=== PATIENT | female | born 1935 | race Caucasian/White ===

== ENCOUNTER 2018-06-04 18:25 | Observation (INO) ==
[2018-06-04 19:48] LABS: Baso % (Auto) 0.4 % (0.0-2.0); Eos # (Auto) 0.1 th/mm3 (0.0-0.4); Eos % (Auto) 1.5 % (0.0-4.0); Hematocrit 37.6 % (35.0-46.0); Hemoglobin 12.2 gm/dL (11.6-15.3); Lymph # (Auto) 1.9 th/mm3 (1.0-4.8); Lymph % (Auto) 42.5 % (9.0-44.0); Mean Corpuscular HGB Conc 32.3 % (32.0-36.0); Mean Corpuscular Hemoglobin 29.1 pg (27.0-34.0); Mean Corpuscular Volume 90.1 fL (80.0-100.0); Mean Platelet Volume 9.9 fL (7.0-11.0); Mono # (Auto) 0.4 th/mm3 (0.0-0.9); Mono % (Auto) 9.9 % (0.0-8.0); Neut # (Auto) 2.1 th/mm3 (1.8-7.7); Neut % (Auto) 45.7 % (16.0-70.0); Platelet Count 152 th/mm3 (150-450); Red Blood Count 4.18 mil/mm3 (4.00-5.30); White Blood Count 4.5 th/mm3 (4.0-11.0)
[2018-06-04 20:16] LABS: Alanine Aminotransferase 16 U/L (10-53); Albumin 2.7 g/dL (3.4-5.0); Alkaline Phosphatase 76 U/L (45-117); Anion Gap 6 meq/L (5-15); Aspartate Aminotransferase 33 U/L (15-37); Blood Urea Nitrogen 23 mg/dL (7-18); Calcium 7.8 mg/dL (8.5-10.1); Carbon Dioxide 30.1 meq/L (21.0-32.0); Chloride 106 meq/L (98-107); Glomerular Filtration Rate Greater Than 89 mL/min (>89); Glucose,Random 77 mg/dL (74-106); Sodium 142 meq/L (136-145); Total Protein 6.3 g/dL (6.4-8.2); Troponin I 0.03 ng/mL (0.02-0.05)
[2018-06-04 20:18] LABS: Potassium 2.9 meq/L (3.5-5.1)
[2018-06-04] MEDS ORDERED: HYDROmorphone PF Inj 2 MG/ML Vial IV.PUSH ONE (21:39)
--- NOTE | 2018-06-04 22:04 | ED ---
HPI General Chief complaint: Medical Clearance Stated complaint: DR sent for cardiac check Time Seen by Provider: 06/04/18 19:09 Source: patient and family Mode of arrival: ambulatory Limitations: altered mental status History of Present Illness HPI Narrative: The patient is 82 years old and arrives to the ED due to bradycardia with arrhythmia at a primary care facility. The patient has not been eating for the past couple weeks. The son was worried and so brought her to the primary care for evaluation thinking it might of been a UTI. Dipstick was done there. No UTI was present. Incidentally the son notes diet has improved over the past couple of days. He also notes DCF came by a few days prior due to concern from the neighbors. The patient has no complaint in the ED. MD complaint: medical clearance requested Onset (ago): hour(s) Reason for Medical Clearance: medical condition Place: home Alleged Intoxication: No Compliant with Home Medications: No Traumatic Symptoms: denies traumatic injury Associated Symptoms: other (decreased appetite) Home Medications Medication Instructions Recorded Confirmed No Known Home Medications 06/04/18 06/04/18 Allergies Allergy/AdvReac Type Severity Reaction Status Date / Time No Known Allergies Allergy Verified 06/04/18 19:11 Review of Systems ROS: all other systems reviewed are negative Constitutional Denies fever(s) and Reports increased appetite PMFSH Social History Social History Substance History: No History of Abuse Smoking Status: Never smoker How Often Do You Have a Drink Containing Alcohol: Never Recent Travel in [facility] within the Last 8 Weeks: No Recent Out of Country Travel within the Last 8 Weeks: No Immunization History Tetanus Immunization: Unsure Hx Influenza Vaccine This Season: No Exam Narrative Exam Narrative: GENERAL: 82-year-old female, very thin with a BMI 15, resting comfortably, answers yes and no to some questions SKIN: Focused skin assessment warm/dry. HEAD: Atraumatic. Normocephalic. EYES: Pupils equal and round. No scleral icterus. No injection or drainage. ENT: No nasal bleeding or discharge. Mucous membranes pink and moist. NECK: Trachea midline. No JVD. CARDIOVASCULAR: Rate is about 50-60. RESPIRATORY: No accessory muscle use. Clear to auscultation. Breath sounds equal bilaterally. GASTROINTESTINAL: Abdomen soft, non-tender, nondistended. Hepatic and splenic margins not palpable. MUSCULOSKELETAL: No obvious deformities. No clubbing. No cyanosis. No edema. NEUROLOGICAL: Awake and alert. No obvious cranial nerve deficits. Motor grossly within normal limits. Normal speech. PSYCHIATRIC: Appropriate mood and affect; insight and judgment normal. Course Initial Documented Vital Signs Temperature 97.8 F 06/04/18 18:42 Pulse Rate 55 L 06/04/18 18:42 Respiratory Rate 14 06/04/18 18:42 Blood Pressure 123/59 L 06/04/18 18:42 Pulse Oximetry 99 06/04/18 18:42 Last Documented Vital Signs Temperature 97.8 F 06/04/18 18:42 Pulse Rate 57 L 06/04/18 23:02 Respiratory Rate 17 06/04/18 23:02 Blood Pressure 138/69 06/04/18 23:02 Pulse Oximetry 100 06/04/18 23:02 Medical Decision Making MDM Narrative Medical decision making narrative: The patient is a 82-year-old female who arrives with her son. She was not eating any food for the past several days however couple days ago developed somewhat vigorous appetite and began eating more than normal. The son was worried she might have UTI or some other readily correctable abnormality and went to an urgent care center. A dipstick there showed no UTI however her heart rate was in the 50s and evidently regular however they did not capture any EKG or someone with them. The patient was referred to the ED for evaluation of the bradycardia with arrhythmia. Here the patient has no chest pain shortness of breath nausea vomiting or fever. The patient's son reports she has had a vigorous appetite lately as noted. No vomiting. On the monitor we see a heart rate of 50-60 which appears regular. The EKG shows a rhythm of 61 with frequent PVCs, unifocal. Initial blood work showed potassium of 2.9 with a BUN creatinine ratio of 23/0.46 concern for prerenal azotemia. TSH was also less than 0.05. A liter of saline was transfused and 40 mEq potassium administered. Repeat blood work was done. Repeat BMP revealed a BUN creatinine of 22/0.44 and potassium 3.1 with mild hypocalcemia. Troponin also at 0.03 is noted. Case discussed with the son and the patient about admission with IV hydration and electrolyte replenishment serial blood work. Case management may also be of some benefit in this case. Overall the son prefers to take the patient home. She does live alone however he visits daily and assists with laundry among other things. Case discussed with Dr. Dunbar for the hospitalist service. Medical Screen Exam Complete: Yes Emergency Medical Condition: Yes Differential Diagnosis Differential Diagnosis: Electrolyte imbalance, arrhythmia, dehydration, failure to thrive, hypothyroidism Lab Data Lab results reviewed: Yes I reviewed the patient's lab results. Lab results narrative: Troponin 0.03 LFTs are essentially unremarkable TSH is less than 0.05 Result diagrams: 06/04/18 19:35 06/04/18 22:20 Lab Results 06/04/18 06/04/18 06/04/18 Range/Units 19:35 19:35 22:20 WBC 4.5 (4.0-11.0) th/mm3 RBC 4.18 (4.00-5.30) mil/mm3 Hgb 12.2 (11.6-15.3) gm/dL Hct 37.6 (35.0-46.0) % MCV 90.1 (80.0-100.0) fL MCH 29.1 (27.0-34.0) pg MCHC 32.3 (32.0-36.0) % RDW 17.0 (11.6-17.2) % Plt Count 152 (150-450) th/mm3 MPV 9.9 (7.0-11.0) fL Neut % (Auto) 45.7 (16.0-70.0) % Lymph % (Auto) 42.5 (9.0-44.0) % [place] % (Auto) 9.9 H (0.0-8.0) % Eos % (Auto) 1.5 (0.0-4.0) % Baso % (Auto) 0.4 (0.0-2.0) % Neut # (Auto) 2.1 (1.8-7.7) th/mm3 Lymph # (Auto) 1.9 (1.0-4.8) th/mm3 [place] # (Auto) 0.4 (0.0-0.9) th/mm3 Eos # (Auto) 0.1 (0.0-0.4) th/mm3 Baso # (Auto) 0.0 (0.0-0.2) th/mm3 WBC Differential . Differential Comment Auto diff final Sodium 142 144 (136-145) meq/L Potassium 2.9 L* 3.1 L (3.5-5.1) meq/L Chloride 106 108 H (98-107) meq/L Carbon Dioxide 30.1 30.2 (21.0-32.0) meq/L Anion Gap 6 6 (5-15) meq/L BUN 23 H 22 H (7-18) mg/dL Creatinine 0.46 L 0.44 L (0.50-1.00) mg/dL Estimated GFR Greater than 89 Greater than 89 (>89) mL/min Random Glucose 77 82 (74-106) mg/dL Calcium 7.8 L 7.4 L* (8.5-10.1) mg/dL Prot Corrected Calcium 8.3 L (8.5-10.1) mg/dL Total Bilirubin 0.7 (0.2-1.0) mg/dL AST 33 (15-37) U/L ALT 16 (10-53) U/L Alkaline Phosphatase 76 (45-117) U/L Troponin I 0.03 (0.02-0.05) ng/mL Total Protein 6.3 L 5.5 L D (6.4-8.2) g/dL Albumin 2.7 L (3.4-5.0) g/dL TSH Less than 0.005 L (0.358-3.740) uIU/mL Free T4 1.08 (0.76-1.46) ng/dL Discharge Plan Discharge Disposition Patient Disposition: 30 Still Patient Physicians Team ED Provider: Geronimo Langley Primary Care Provider: UNKNOWN, Rxs /Orders / Referrals /Forms Prescriptions: No Action No Known Home Medications RF: 0 Discharge Interventions Interventions: Vital Signs Last Done: 06/04/18 23:02 Status ED Status: Ready for Discharge
[2018-06-04 22:55] LABS: Anion Gap 6 meq/L (5-15); Blood Urea Nitrogen 22 mg/dL (7-18); Calcium 7.4 mg/dL (8.5-10.1); Carbon Dioxide 30.2 meq/L (21.0-32.0); Chloride 108 meq/L (98-107); Free T4 (Free Thyroxine) 1.08 ng/dL (0.76-1.46); Glomerular Filtration Rate Greater Than 89 mL/min (>89); Glucose,Random 82 mg/dL (74-106); Potassium 3.1 meq/L (3.5-5.1); Sodium 144 meq/L (136-145)
[2018-06-04 23:11] LABS: Total Protein 5.5 g/dL (6.4-8.2)
[2018-06-04] MEDS ORDERED: Bisacodyl 10 MG Supp RECTAL PRN (23:45)
[2018-06-04] MEDS ORDERED: Acetaminophen 325 MG Tablet PO PRN (23:45)
--- NOTE | 2018-06-04 23:57 | P.HPIM ---
History of Present Illness Primary Care Physician: UNKNOWN History of Present Illness: This is an 79-year-old female with no significant PMH was referred to the ER by her PCP for bradycardia and abnormal EKG. Per son, patient had had decreased appetite w/ c/o generalized weakness for the last 1-2wks. Was seen by PCP, found to be negative for UTI, however she was noted to have HR 50's and possible abnormal rhythm on EKG. On arrival, BP 123/59, HR 55, O2 sat 99% on RA , Afebrile. CBC unremarkable. K+ 2.9. Troponin 0 0.03. UA negative for UTI. S/p K+ replacement in ER, repeat K+ 3.1. - Diagnosis (1) Hypokalemia (2) Bradycardia (3) Dehydration Review of Systems PAST FAMILY HISTORY: Reviewed. No h/o DM or CAD All other systems reviewed negative except as stated in HPI PMFSH - History History Provided By: Family Member - Tobacco History Smoking Status: Never smoker - Alcohol History How Often Do You Have a Drink Containing Alcohol: Never - Substance Use History Substance History: No History of Abuse - Travel History Recent Travel in the [place] Within the Last 8 Weeks: No Recent Travel Out of the Country Within the Last 8 Weeks: No - Immunization History Tetanus Immunization: Unsure Hx Influenza Vaccine This Season: No Medications and Allergies Active Medications: Active Medications Acetaminophen (Tylenol) 650 mg PO Q4H PRN PRN Reason: Temp > 100.4 Al Hydroxide/Mg Hydroxide (Milk Of Magnesia Liq) 30 ml PO Q12H PRN PRN Reason: Mild Constipation Bisacodyl (Dulcolax Supp) 10 mg RECTAL DAILY PRN PRN Reason: SEVERE CONSITIPATION Sodium Chloride (Ns Inj) 1,000 mls @ 100 mls/hr IV.CONT .Q10H VERONICA Lactulose (Lactulose Liq) 30 ml PO DAILY PRN PRN Reason: SEVERE CONSITIPATION Ondansetron HCl (Zofran Inj) 4 mg IV.PUSH Q6H PRN PRN Reason: NAUSEA OR VOMITING Senna/Docusate Sodium (Adriana-Colace) 1 tab PO BID VERONICA Sennosides (Senokot) 17.2 mg PO Q12H PRN PRN Reason: Moderate Constipation Sodium Chloride (Ns Flush) 2 ml IV.FLUSH PRN PRN PRN Reason: FLUSH AFTER USING IV ACCESS Allergies Allergy/AdvReac Type Severity Reaction Status Date / Time No Known Allergies Allergy Verified 06/04/18 19:11 Home Medications Medication Instructions Recorded Confirmed Type No Known Home Medications 06/04/18 06/04/18 History Exam Vital signs: Vital Signs 06/04/18 18:42 06/04/18 19:18 06/04/18 19:34 Temperature 97.8 F Pulse Rate 55 L 59 L 61 Respiratory Rate 14 18 Blood Pressure 123/59 L 136/63 Pulse Oximetry 99 99 06/04/18 19:35 06/04/18 23:02 Temperature Pulse Rate 57 L Respiratory Rate 17 Blood Pressure 138/69 Pulse Oximetry 99 100 Intake & Output 06/04/18 06/04/18 06/05/18 06:59 18:59 06:59 Weight 30.844 kg Narrative: PE: GENERAL: Thin elderly female in no acute distress. SKIN: Focused skin assessment warm and dry. HEENT: PERRLA, EOMI. No scleral icterus or conjunctival pallor. No lid lag or facial droop. CARDIOVASCULAR: Regular rate and rhythm. No obvious murmurs to auscultation. No chest tenderness to palpation. RESPIRATORY: No obvious rhonchi or wheezing. Clear to auscultation. Breath sounds equal bilaterally. GASTROINTESTINAL: Abdomen soft, non-tender, nondistended. BS normal. MUSCULOSKELETAL: Extremities without clubbing, cyanosis, or edema. No obvious deformities. NEUROLOGICAL: Awake, alert, answers to few questions. No focal neurologic deficits. Moving both upper and lower extremities spontaneously. PSYCHIATRIC: Appropriate mood and affect. Insight and judgment normal. Results - Labs CBC & Chem 7: 06/04/18 19:35 06/04/18 22:20 Labs: Short CBC 06/04/18 Range/Units 19:35 WBC 4.5 (4.0-11.0) th/mm3 Hgb 12.2 (11.6-15.3) gm/dL Hct 37.6 (35.0-46.0) % Plt Count 152 (150-450) th/mm3 [facility] 06/04/18 06/04/18 19:35 22:20 Sodium 142 144 Potassium 2.9 L* 3.1 L Chloride 106 108 H Carbon Dioxide 30.1 30.2 BUN 23 H 22 H Creatinine 0.46 L 0.44 L Calcium 7.8 L 7.4 L* Cardiac Enzymes 06/04/18 Range/Units 19:35 Troponin I 0.03 (0.02-0.05) ng/mL Liver Function 06/04/18 Range/Units 19:35 Total Bilirubin 0.7 (0.2-1.0) mg/dL AST 33 (15-37) U/L ALT 16 (10-53) U/L Alkaline Phosphatase 76 (45-117) U/L Albumin 2.7 L (3.4-5.0) g/dL Caprini VTE Risk Assessment Caprini VTE Risk Assessment: No/Low Risk (score <= 1) Caprini Risk Assessment Model: Point Value = 1 Point Value = 2 Point Value = 3 Point Value = 5 Age 41-60 Minor surgery BMI > 25 kg/m2 Swollen legs Varicose veins or History of unexplained or recurrent spontaneous Oral contraceptives or hormone replacement Sepsis (< 1 month) Serious lung disease, including pneumonia (< 1 month) Abnormal pulmonary function Acute myocardial infarction Congestive heart failure (< 1 month) History of inflammatory bowel disease Medical patient at bed rest Age 61-74 Arthroscopic surgery Major open surgery (> 45 min) Laparoscopic surgery (> 45 min) Malignancy Confined to bed (> 72 hours) Immobilizing plaster cast Central venous access Age >= 75 History of VTE Family history of VTE Factor V Leiden Prothrombin [id number] Lupus anticoagulant Anticardiolipin antibodies Elevated serum homocysteine Heparin-induced thrombocytopenia Other congenital or acquired thrombophilia Stroke (< 1 month) Elective arthroplasty Hip, pelvis, or leg fracture Acute spinal cord injury (< 1 month) Prophylaxis Regimen: Total Risk Factor Score Risk Level Prophylaxis Regimen 0-1 Low Early ambulation 2 Moderate Order ONE of the following: *Sequential Compression Device (SCD) *Heparin 5000 units SQ BID 3-4 Higher Order ONE of the following medications: *Heparin 5000 units SQ TID *Enoxaparin/Lovenox 40 mg SQ daily (WT < 150 kg, CrCl > 30 mL/min) *Enoxaparin/Lovenox 30 mg SQ daily (WT < 150 kg, CrCl > 10-29 mL/min) *Enoxaparin/Lovenox 30 mg SQ BID (WT < 150 kg, CrCl > 30 mL/min) AND/OR *Sequential Compression Device (SCD) 5 or more Highest Order ONE of the following medications: *Heparin 5000 units SQ TID (Preferred with Epidurals) *Enoxaparin/Lovenox 40 mg SQ daily (WT < 150 kg, CrCl > 30 mL/min) *Enoxaparin/Lovenox 30 mg SQ daily (WT < 150 kg, CrCl > 10-29 mL/min) *Enoxaparin/Lovenox 30 mg SQ BID (WT < 150 kg, CrCl > 30 mL/min) AND *Sequential Compression Device (SCD) Assessment and Plan - Assessment (1) Hypokalemia Code(s): E87.6 - Hypokalemia Status: Acute (2) Bradycardia Code(s): R00.1 - Bradycardia, unspecified Status: Acute (3) Dehydration Code(s): E86.0 - Dehydration Status: Acute - Plan A/P: 1. Hypokalemia: K+ 2.9 on exam, s/p IVF and K+ replacement, repeat K+ 3.1, will give additional replacement. Check Mg. EKG w/ frequent PVC's likely due to electrolyte imbalance. Telemetry, monitor closely. 2. Bradycardia: HR 50-60's while in ER, relays generalized weakness, unclear if related to symptomatic bradycardia or due to decreased PO intake, telemetry. Check Echo to eval for cardiomyopathy. Cardio eval as needed. 3. Dehydration: BUN 23, IVF for hydration, monitor I/O, repeat labs in am. 4. DVT Prophylaxis: SCD/Teds 5. Social work for d/c planning as needed 6. Case discussed w/ ER physician at length, labs/records/imaging reviewed by me
[2018-06-05 00:34] LABS: Bacteria,Urine Few /hpf; Bilirubin,Urine Negative (Negative); Clarity,Urine Hazy (Clear); Color,Urine Yellow (Yellw/Straw); Glucose,Urine (UA) Negative (Negative); Leukocyte Esterase,Urine Negative (Negative); Nitrite,Urine Negative (Negative); Specific Gravity,Urine 1.011 (1.002-1.035); Squamous Epithelial Cell,Urine 1 /hpf (0-5); Transitional Epi Cells,Urine <1 /hpf
[2018-06-05 00:54] LABS: Magnesium 1.6 mg/dL (1.5-2.5)
[2018-06-05 00:56] LABS: Troponin I 0.04 ng/mL (0.02-0.05)
[2018-06-05] MEDS: Sod Chloride 0.9% Inj 1,000 ML IV.CONT SCH ×3 (01:33→20:21)
--- NOTE | 2018-06-05 07:54 | P.PN ---
Subjective Interval history: Patient doing well overnight. Per nephew in room, patient now at baseline and denies weakness. Patient reports that she is able to complete all ADL's at home , and that she feels ready for discharge. Patient denies any syncopal episodes overnight, no other concerns. Patient is F/V/S well. Physical Exam Vital signs: Vital Signs 06/04/18 18:42 06/04/18 19:18 06/04/18 19:34 Temperature 97.8 F Pulse Rate 55 L 59 L 61 Respiratory Rate 14 18 Blood Pressure 123/59 L 136/63 Pulse Oximetry 99 99 06/04/18 19:35 06/04/18 23:02 06/05/18 00:00 Temperature Pulse Rate 57 L 54 L Respiratory Rate 17 18 Blood Pressure 138/69 132/58 L Pulse Oximetry 99 100 100 06/05/18 00:05 06/05/18 04:00 Temperature 98.3 F Pulse Rate 66 57 L Respiratory Rate 16 Blood Pressure 145/65 H Pulse Oximetry 100 Intake & Output 06/04/18 06/05/18 06/05/18 18:59 06:59 18:59 Weight 30.844 kg Narrative: GENERAL: thin, female, lying comfortably in bed, in NAD, AAOx3 SKIN: Warm and dry. HEENT: Normocephalic. No scleral icterus. No injection or drainage. Poor dentition, MOM. NECK: Supple, trachea midline. No JVD or lymphadenopathy. CARDIOVASCULAR: Regular rate and rhythm without murmurs, gallops, or rubs. RESPIRATORY: Breath sounds equal bilaterally. No accessory muscle use. GASTROINTESTINAL: Abdomen soft, non-tender, nondistended. MUSCULOSKELETAL: No cyanosis, or edema. BACK: Nontender without obvious deformity. No CVA tenderness. Results - Labs CBC & Chem 7: 06/05/18 07:40 06/05/18 07:40 Laboratory Results - last 24 hr 06/04/18 06/04/18 06/04/18 19:35 19:35 22:20 WBC 4.5 RBC 4.18 Hgb 12.2 Hct 37.6 MCV 90.1 MCH 29.1 MCHC 32.3 RDW 17.0 Plt Count 152 MPV 9.9 Neut % (Auto) 45.7 Lymph % (Auto) 42.5 [place] % (Auto) 9.9 H Eos % (Auto) 1.5 Baso % (Auto) 0.4 Neut # (Auto) 2.1 Lymph # (Auto) 1.9 [place] # (Auto) 0.4 Eos # (Auto) 0.1 Baso # (Auto) 0.0 WBC Differential . Differential Comment Auto diff final Sodium 142 144 Potassium 2.9 L* 3.1 L Chloride 106 108 H Carbon Dioxide 30.1 30.2 Anion Gap 6 6 BUN 23 H 22 H Creatinine 0.46 L 0.44 L Estimated GFR Greater than 89 Greater than 89 Random Glucose 77 82 Calcium 7.8 L 7.4 L* Prot Corrected Calcium 8.3 L Magnesium Total Bilirubin 0.7 AST 33 ALT 16 Alkaline Phosphatase 76 Troponin I 0.03 Total Protein 6.3 L 5.5 L D Albumin 2.7 L TSH Less than 0.005 L Free T4 1.08 Urine Color Urine Clarity Urine pH Ur Specific [place] Urine Protein Urine Glucose (UA) Urine Ketones Urine Occult Blood Urine Nitrate Urine Bilirubin Urine Urobilinogen Ur Leukocyte Esterase Urine RBC Urine WBC Ur Squamous Epith Cells Ur Transition Epith Cell Urine Bacteria Micro UA Comment Ur Microscopic Review Urine Culture Comments 06/05/18 06/05/18 00:10 00:10 WBC RBC Hgb Hct MCV MCH MCHC RDW Plt Count MPV Neut % (Auto) Lymph % (Auto) [place] % (Auto) Eos % (Auto) Baso % (Auto) Neut # (Auto) Lymph # (Auto) [place] # (Auto) Eos # (Auto) Baso # (Auto) WBC Differential Differential Comment Sodium Potassium Chloride Carbon Dioxide Anion Gap BUN Creatinine Estimated GFR Random Glucose Calcium Prot Corrected Calcium Magnesium 1.6 Total Bilirubin AST ALT Alkaline Phosphatase Troponin I 0.04 Total Protein Albumin TSH Free T4 Urine Color Yellow Urine Clarity Hazy H Urine pH 6.0 Ur Specific [place] 1.011 Urine Protein Negative Urine Glucose (UA) Negative Urine Ketones Negative Urine Occult Blood Negative Urine Nitrate Negative Urine Bilirubin Negative Urine Urobilinogen 2.0 H Ur Leukocyte Esterase Negative Urine RBC 1 Urine WBC 3 Ur Squamous Epith Cells 1 Ur Transition Epith Cell <1 Urine Bacteria Few H Micro UA Comment Culture not ind Ur Microscopic Review Not Reportable Urine Culture Comments Culture not ind Assessment and Plan - Assessment (1) Hypokalemia Code(s): E87.6 - Hypokalemia Status: Resolved (2) Bradycardia Code(s): R00.1 - Bradycardia, unspecified Status: Resolved (3) Dehydration Code(s): E86.0 - Dehydration Status: Resolved - Plan 82 y/o HF with no significant PMHx admitted for IP mgmt. of bradycardia with weakness and Hypokalemia, HD#1 1. Hypokalemia: resolved, K 4.3 today K 2.9 on admission s/p IVF and K+ replacement Mag WNL EKG w/ frequent PVC's likely due to electrolyte imbalance Telemetry F/U in AM 2. Bradycardia HR 50-60's on admission and overnight, generalized weakness on admission now resolved Unclear if related to symptomatic bradycardia or due to decreased PO intake, telemetry. Ordering Echo to evaluate for cardiomyopathy as cause, no previous hx 3. Weakness: resolved, likely due to dehydration PT evaluated with no need for therapy 4. Dehydration: resolved BUN 16 today from 23 Cont. IVF F/U BMP in AM 5. DVT Prophylaxis: SCD/Teds 6. Case mgmt consulted for D/C planning: lives alone and can complete all ADL' s per patient, does not have PCP, face to face completed to evaluate home safety , they will call me for results, cellphone given. 7. Dispo: pending Echo results Code Status: full Discussed Condition With: patient, nephew, RN, and case mgmt
[2018-06-05 08:37] LABS: Baso % (Auto) 0.3 % (0.0-2.0); Eos # (Auto) 0.1 th/mm3 (0.0-0.4); Eos % (Auto) 2.6 % (0.0-4.0); Hematocrit 32.9 % (35.0-46.0); Lymph % (Auto) 51.1 % (9.0-44.0); Mean Corpuscular HGB Conc 33.5 % (32.0-36.0); Mean Corpuscular Hemoglobin 29.6 pg (27.0-34.0); Mean Corpuscular Volume 88.4 fL (80.0-100.0); Mean Platelet Volume 9.7 fL (7.0-11.0); Mono # (Auto) 0.3 th/mm3 (0.0-0.9); Mono % (Auto) 8.4 % (0.0-8.0); Neut # (Auto) 1.5 th/mm3 (1.8-7.7); Neut % (Auto) 37.6 % (16.0-70.0); Platelet Count 129 th/mm3 (150-450); Red Blood Count 3.72 mil/mm3 (4.00-5.30); Red Cell Distribution Width 17.2 % (11.6-17.2)
[2018-06-05 09:04] LABS: Alanine Aminotransferase 13 U/L (10-53); Albumin 2.3 g/dL (3.4-5.0); Alkaline Phosphatase 58 U/L (45-117); Anion Gap 5 meq/L (5-15); Aspartate Aminotransferase 25 U/L (15-37); Blood Urea Nitrogen 16 mg/dL (7-18); Calcium 7.5 mg/dL (8.5-10.1); Carbon Dioxide 25.7 meq/L (21.0-32.0); Chloride 116 meq/L (98-107); Glomerular Filtration Rate Greater Than 89 mL/min (>89); Glucose,Random 74 mg/dL (74-106); Potassium 4.3 meq/L (3.5-5.1); Sodium 147 meq/L (136-145); Total Protein 5.2 g/dL (6.4-8.2)
[2018-06-05] MEDS: Senna/Docusate Sodium 8.6/50 MG Tablet PO SCH ×2 (10:51→20:23)
--- NOTE | 2018-06-05 11:33 | ECG ---
Date Performed: 06/04/2018 Time Performed: 19:31:12 PTAGE: 82 years EKG: Sinus rhythm WITH FREQUENT SUPRAVENTRICULAR PREMATURE COMPLEXES ABNORMAL RHYTHM ECG NO PREVIOUS TRACING DOCTOR: Mic Fajarod Interpretating Date/Time 06/05/2018 11:30:29
--- NOTE | 2018-06-05 15:45 | P.DCO ---
- Home Health Nursing Order: Nursing assessment with vital signs Instructions: assess home safety - Home Health Aide Order: To assist in: Bathing and personal care, service consultant and meal prep Instructions: only if needed after consult - Label Paster Order: To evaluate: Living conditions/environment, Support services - Case Management Consult Yes - Certification I have seen patient Pamela Stevens on 06/05/18. My clinical findings support the need for the requested home health care services because: Limited ability to care for self, High risk of falls I certify that my clinical findings support that this patient is homebound because: Need for psychosocial assistance
[2018-06-06] MEDS: Sod Chloride 0.9% Inj 1,000 ML IV.CONT SCH ×2 (05:51→17:29)
[2018-06-06 06:09] LABS: Baso % (Auto) 0.4 % (0.0-2.0); Eos # (Auto) 0.1 th/mm3 (0.0-0.4); Eos % (Auto) 2.6 % (0.0-4.0); Hematocrit 33.3 % (35.0-46.0); Lymph # (Auto) 1.7 th/mm3 (1.0-4.8); Lymph % (Auto) 45.8 % (9.0-44.0); Mean Corpuscular HGB Conc 32.9 % (32.0-36.0); Mean Corpuscular Hemoglobin 29.6 pg (27.0-34.0); Mean Platelet Volume 9.7 fL (7.0-11.0); Mono # (Auto) 0.2 th/mm3 (0.0-0.9); Mono % (Auto) 6.4 % (0.0-8.0); Neut # (Auto) 1.7 th/mm3 (1.8-7.7); Neut % (Auto) 44.8 % (16.0-70.0); Platelet Count 123 th/mm3 (150-450); Red Cell Distribution Width 17.9 % (11.6-17.2); White Blood Count 3.7 th/mm3 (4.0-11.0)
[2018-06-06 06:26] LABS: Anion Gap 10 meq/L (5-15); Blood Urea Nitrogen 13 mg/dL (7-18); Calcium 7.4 mg/dL (8.5-10.1); Chloride 113 meq/L (98-107); Glomerular Filtration Rate Greater Than 89 mL/min (>89); Glucose,Random 75 mg/dL (74-106); Potassium 4.2 meq/L (3.5-5.1); Sodium 146 meq/L (136-145); Triiodothyronine (T3) Free 1.95 pg/mL (2.18-3.98)
[2018-06-06] MEDS: Senna/Docusate Sodium 8.6/50 MG Tablet PO SCH (10:59)
--- NOTE | 2018-06-06 12:24 | ECHRPT ---
Indication: Cardiomyopathy CONCLUSIONS The left ventricular systolic function is low normal with an estimated ejection fraction in the rang e of 50- 55%. The left ventricle is normal size with normal wall thickness. No regional wall motion abnormalities. Grade 2 Diastolic Dysfunction There is moderate-severe biatrial enlargement. Moderate mitral valve regurgitation. Moderate aortic valve regurgitation. Moderate tricuspid regurgitation. The estimated pulmonary arterial pressure is 79 mmHg. The inferior vena cava is dilated with reduced inspiratory collapse. BP: / HR: Rhythm: MEASUREMENTS (Male / Female) Normal Values Technical Quality:Good 2D ECHO LV Diastolic Diameter PLAX 4.8 cm 4.2 - 5.9 / 3.9 - 5.3 cm LV Systolic Diameter PLAX 3.6 cm IVS Diastolic Thickness 0.9 cm 0.6 - 1.0 / 0.6 - 0.9 cm LVPW Diastolic Thickness 0.9 cm 0.6 - 1.0 / 0.6 - 0.9 cm LV Relative Wall Thickness 0.4 LVOT Diameter 1.9 cm Aortic Root Diameter 2.4 cm LA Systolic Diameter LX 3.6 cm 3.0 - 4.0 / 2.7 - 3.8 cm DOPPLER AV Peak Velocity 161.0 cm/s AV Peak Gradient 10.4 mmHg AI Peak Velocity 479.3 cm/s AI Peak Gradient 91.9 mmHg AI Pressure Half Time 649.0 ms LVOT Peak Velocity 111.0 cm/s LVOT Peak Gradient 4.9 mmHg AV Area Cont Eq pk 2.0 cm Mitral E Point Velocity 77.0 cm/s Mitral A Point Velocity 39.5 cm/s Mitral E to A Ratio 1.9 LV E' Lateral Velocity 5.5 cm/s Mitral E to LV E' Lateral Ratio 14.1 LV E' Septal Velocity 7.9 cm/s Mitral E to LV E' Septal Ratio 9.7 TR Peak Velocity 401.0 cm/s TR Peak Gradient 64.3 mmHg Right Atrial Pressure 15.0 mmHg Pulmonary Artery Systolic Pressu 79.3 mmHg Right Ventricular Systolic Press 79.3 mmHg PV Peak Velocity 107.0 cm/s PV Peak Gradient 4.6 mmHg FINDINGS LEFT VENTRICLE Normal left ventricular size Wall thickness is normal. The left ventricular systolic function is low normal with an estimated ejection fraction in the rang e of 50- 55%. RIGHT VENTRICLE Normal right ventricular size and systolic function. LEFT ATRIUM The left atrial size is severely dilated. RIGHT ATRIUM The right atrial size is moderately dilated. ATRIAL SEPTUM Normal atrial septal thickness without atrial level shunting by limited color doppler interrogation. AORTA The aortic root and proximal ascending aorta are normal in size on limited imaging. MITRAL VALVE Moderate mitral valve regurgitation. AORTIC VALVE Trileaflet aortic valve. Moderate aortic valve regurgitation. TRICUSPID VALVE There is moderate tricuspid regurgitation. The estimated pulmonary arterial pressure is 79 mmHg. PULMONARY VALVE No pulmonary valve regurgitation or stenosis. VESSELS The inferior vena cava is dilated with reduced inspiratory collapse. PERICARDIUM No pericardial effusion. Antwan Strong MD (Electronically Signed) Final Date:06 June 2018 12:22
--- NOTE | 2018-06-06 12:36 | P.PN ---
Subjective Interval history: Patient doing well overnight, reports that her fatigue has resolved. She is F/V/ S well with no difficulty. Physical Exam Vital signs: Vital Signs 06/05/18 16:00 06/05/18 20:00 06/05/18 23:54 Temperature 98.1 F 98.3 F 98.1 F Pulse Rate 56 L 60 59 L Respiratory Rate 14 16 17 Blood Pressure 122/58 L 128/58 L 125/58 L Pulse Oximetry 96 98 97 06/06/18 00:00 06/06/18 04:00 06/06/18 08:11 Temperature 97.9 F 98.2 F Pulse Rate 58 L 56 L 54 L Respiratory Rate 16 18 Blood Pressure 151/67 H 165/72 H Pulse Oximetry 98 95 06/06/18 08:50 06/06/18 11:29 Temperature 97.9 F Pulse Rate 59 L Respiratory Rate 20 Blood Pressure 147/67 H Pulse Oximetry 95 100 Intake & Output 06/05/18 06/06/18 06/06/18 18:59 06:59 18:59 Intake Total 1000 / 1000 1000 / 1000 Balance 1000 / 1000 1000 / 1000 Weight 32 kg Intake: IV 1000 / 1000 1000 / 1000 NS Inj 1,000 ML @ 100 mls/hr IV 1000 / 1000 1000 / 1000 .CONT .Q10H VERONICA Rx#:[id number] Other: # Voids 2 5 Date of Last Bowel Movement 06/04/18 06/06/18 # Bowel Movements 2 Narrative: GENERAL: thin, female, lying comfortably in bed, in NAD, AAOx3 SKIN: Warm and dry. HEENT: Normocephalic. No scleral icterus. No injection or drainage. Poor dentition, MOM. NECK: Supple, trachea midline. No JVD or lymphadenopathy. CARDIOVASCULAR: Regular rate and rhythm without murmurs, gallops, or rubs. RESPIRATORY: Breath sounds equal bilaterally. No accessory muscle use. GASTROINTESTINAL: Abdomen soft, non-tender, nondistended. MUSCULOSKELETAL: No cyanosis, or edema. BACK: Nontender without obvious deformity. No CVA tenderness. Results - Labs CBC & Chem 7: 06/06/18 04:45 06/06/18 04:45 Laboratory Results - last 24 hr 06/06/18 06/06/18 04:45 04:45 WBC 3.7 L RBC 3.70 L Hgb 11.0 L Hct 33.3 L MCV 90.0 MCH 29.6 MCHC 32.9 RDW 17.9 H Plt Count 123 L MPV 9.7 Neut % (Auto) 44.8 Lymph % (Auto) 45.8 H Walker % (Auto) 6.4 Eos % (Auto) 2.6 Baso % (Auto) 0.4 Neut # (Auto) 1.7 L Lymph # (Auto) 1.7 Walker # (Auto) 0.2 Eos # (Auto) 0.1 Baso # (Auto) 0.0 WBC Differential . Differential Comment Auto diff final Sodium 146 H Potassium 4.2 Chloride 113 H Carbon Dioxide 23.0 Anion Gap 10 BUN 13 Creatinine 0.32 L Estimated GFR Greater than 89 Random Glucose 75 Calcium 7.4 L* Prot Corrected Calcium 8.6 Total Protein 5.0 L Free T3 1.95 L Assessment and Plan - Assessment (1) Hypokalemia Code(s): E87.6 - Hypokalemia Status: Resolved (2) Bradycardia Code(s): R00.1 - Bradycardia, unspecified Status: Resolved (3) Dehydration Code(s): E86.0 - Dehydration Status: Resolved - Plan 82 y/o HF with no significant PMHx admitted for IP mgmt. of bradycardia with weakness and Hypokalemia, HD#2 1. Hypokalemia: resolved, K 4.2 today K 2.9 on admission s/p IVF and K+ replacement Mag WNL EKG w/ frequent PVC's likely due to electrolyte imbalance Telemetry 2. Bradycardia HR 50-60's on admission and overnight, generalized weakness on admission now resolved Unclear if related to symptomatic bradycardia or due to decreased PO intake, telemetry. Ordering Echo to evaluate for cardiomyopathy as cause, no previous hx ECHO: CONCLUSIONS The left ventricular systolic function is low normal with an estimated ejection fraction in the range of 50- 55%. The left ventricle is normal size with normal wall thickness. No regional wall motion abnormalities. Grade 2 Diastolic Dysfunction There is moderate-severe biatrial enlargement. Moderate mitral valve regurgitation. Moderate aortic valve regurgitation. Moderate tricuspid regurgitation. The estimated pulmonary arterial pressure is 79 mmHg. The inferior vena cava is dilated with reduced inspiratory collapse. 3. Weakness: resolved, likely due to dehydration PT evaluated with no need for therapy 4. Dehydration: resolved BUN 13 today from 23 on admit s/p IVF 5. DVT Prophylaxis: SCD/Teds 6. Diastolic Dysfunction: Dx today per Echo, declines Cardiology referral, does not have a PCP. Not a candidate for BB due to bradycardia. Advised importance of est. care with PCP and outpatient Cards referral. 7. Case mgmt consulted for D/C planning: lives alone and can complete all ADL' s per patient, does not have PCP, face to face completed to evaluate home safety , they will call me for results, cellphone given. 8. Dispo: stable for D/C Discharge patient to home Condition on discharge: Improved Cardiac Diet as tolerated Ad Jessica activity Rx written: None Follow-up with primary care physician (est. care) Code Status: full Discussed Condition With: patient and RN
[2018-06-06 15:52] VITALS: BP 133/63; PULSE 61; RESP 16; TEMP 97.7; O2SAT 98
== END 2018-06-06 17:52 | disposition home health service (06) ==
LOC: NEDA 18:25 → NEPE 18:25 → NEPFCDU 06-05 00:42
PROVIDERS: ADMIT Family Medicine; ATTEND Family Medicine